=== PATIENT | female | born 2000 | race Caucasian/White ===

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

== ENCOUNTER 2018-01-01 12:34 | Emergency (ER) | payer OTHER ==
[2018-01-01 12:43] VITALS: BP 121/84
--- NOTE | 2018-01-01 12:49 | UC ---
HPI Wound/Suture Re-check - HPI Summary HPI Summary: 17 y/o female presents to the urgent care for wound re-check s/p laceration repair of RT knee on 12/24/2017. Pt reports she still taking Keflex PO which she will finish tomorrow. She states wound is healing well. She has been wearing the knee immobilize. However she feels she can removed it since she denies knee pain and can move Rt knee w/o any problem. She starts she would like to return to work tomorrow just for 4hrs. Pt works in a restaurant. Pt denies pain, numbness or tingling over the Rt lower extremity, calf pain, fever , signs of infection, abdominal pain, N/V/D. - History Of Current Complaint Stated Complaint: STITICHES REMOVAL Time Seen by Provider: 01/01/18 12:38 Hx Obtained From: Patient Hx Last Menstrual Period: 11/10/17 Onset/Duration: Sudden Onset, Lasting Days - 7 days, Resolved - wound healing well Severity: Moderate Pain Intensity: 0 Pain Scale Used: 0-10 Numeric Surgery Date: 12/24/17 - laceration repair - Allergies/Home Medications Allergies/Adverse Reactions: Allergies Allergy/AdvReac Type Severity Reaction Status Date / Time No Known Allergies Allergy Verified 01/01/18 12:43 PMH/Surg Hx/FS Hx/Imm Hx Previously Healthy: Yes Respiratory History: Asthma - Surgical History Surgical History: None - Family History Known Family History: Positive: Hypertension, Diabetes - Social History Occupation: Employed Full-time Lives: With Family Alcohol Use: None Substance Use Type: None Smoking Status (MU): Current Some Day Smoker Type: Cigarettes Amount Used/How Often: 4 cig day Household Exposure Type: Cigarettes - Immunization History Vaccination Up to Date: Yes Review of Systems Constitutional: Negative Skin: Other - laceration repair of RT knee healing well Eyes: Negative ENT: Negative Respiratory: Negative Cardiovascular: Negative Gastrointestinal: Negative Genitourinary: Negative Motor: Negative Neurovascular: Negative Musculoskeletal: Negative Neurological: Negative Psychological: Negative Is Patient Immunocompromised?: No All Other Systems Reviewed And Are Negative: Yes Physical Exam - Summary Physical Exam Summary: Vital Signs Reviewed: Yes General: well developed, well nourished female adolescent sitting in the examining table w/o any apparent distress Eye Exam: Normal Eyes: Positive: Conjunctiva Clear - PERRLA, EOMI, fundi grossly normal ENT: Positive: Normal ENT inspection, Hearing grossly normal, Pharynx normal, TMs normal Neck: Positive: Supple, Nontender, No Lymphadenopathy Respiratory: Positive: Chest non-tender, Lungs clear, Normal breath sounds, No respiratory distress Cardiovascular: Positive: RRR, No Murmur, Pulses Normal, Brisk Capillary Refill Abdomen Description: Positive: Nontender, No Organomegaly, Soft. Negative: CVA Tenderness (R), CVA Tenderness (L) Bowel Sounds: Positive: Present Musculoskeletal: Positive: Strength Intact, ROM Intact, No Edema Neurological: Positive: Alert, Muscle Tone Normal Psychological Exam: Normal Skin: Positive:RT knee below patella w/ irregular curvilinear superficial laceration about 5.0cm in size w/ [address], healing well ,with crusting and moderate granulation over, non tender to palpation, FROM of Rt knee. sensation intact, capillary refill brisk, and pulses WNL. Triage Information Reviewed: Yes Course/Dx - Course Course Of Treatment: 17 y/o female presents to the urgent care for wound re- check s/p laceration repair of RT knee on 12/24/2017. Pt reports she still taking Keflex PO which she will finish tomorrow. She states wound is healing well. She has been wearing the knee immobilize. However she feels she can removed it since she denies knee pain and can move Rt knee w/o any problem. She starts she would like to return to work tomorrow just for 4hrs. Pt works in a restaurant. Pt denies pain, numbness or tingling over the Rt lower extremity, calf pain, fever, signs of infection, abdominal pain, N/V/D. Hx obtained. Pt w/ RT knee below patella w/ irregular curvilinear superficial laceration about 5.0cm in size w/ [address], healing well ,with crusting and moderate granulation over, non tender to palpation, FROM of Rt knee on examiantion. Wound cleaned w/ iodine swabs and Bacitracin oint applied over wound and wound cover w/ sterile gauze. Sutures are not ready for removal. Pt advised to return in 5-7 days for suture removal. Advised to continue applying Bacitracin oint over wound and keep it dry and cleaned. Pt advised to continue using the knee immobilzer for a couple of days more. Pt advised she can return to work just for few hours. But should avoid standing for long periods of time or heavy lifting. D/c instructions explained. Pt understood and agreed w/ plan of care. - Differential Dx - Laceration/Wound Differential Diagnoses: Cellulitis, Healing Wound, Joint Infection, Suture Removal Provider Diagnoses: 1- wound check s/p laceration of RT knee Discharge - Sign-Out/Discharge Documenting (check all that apply): Patient Departure - D/c home All imaging exams completed and their final reports reviewed: No Studies - Discharge Plan Condition: Stable Disposition: HOME Patient Education Materials: Care For Your Stitches (ED) Forms: *Work Release Referrals: Felice GELLER,Renetta [Primary Care Provider] - 1 Week Additional Instructions: 1-Please continue taking Keflex PO as directed c to avoid resistance. Your stitches are not ready for removal yet you should return in 5-7 days for stitch removal 2- Keep wound clean and dry and apply the Mupurocin topical cream as directed. Avoid excessive movement w/ your knee. Avoid standing for long periods of time 3-Take Ibuprofen or Tylenol PO q6-8hrs prn for pain or swelling. 5- If you develop fever or redness around your finger despite the antibiotic please return to the Urgent care or f/u w/ PCP. - Billing Disposition and Condition Condition: STABLE Disposition: Home
== END 2018-01-01 13:15 | disposition home or self-care (01) ==
LOC: UCEAST 12:34
DX: S81.011D Laceration without foreign body, right knee, subsequent encounter (principal); X58.XXXD Exposure to other specified factors, subsequent encounter; Z72.0 Tobacco use
CPT/HCPCS: 99211; G0463

== ENCOUNTER 2018-01-08 13:23 | Emergency (ER) | payer OTHER ==
--- NOTE | 2018-01-08 13:45 | UC ---
Laceration HPI - HPI Summary HPI Summary: 17 yo female presents for suture removal. She had sutures placed 15 days ago to her right knee and has been in a knee immbolizer until 3 days ago when she decided on her own to take it off and walk around and return to her usual daily activities. She has been doing well. No fevers, bleeding, drainage, warmth, or pain at the site. Today she also complains of a productive cough over the last 3-4 days. She thinks it is bronchitis. Has not taken anything OTC for this. No SOB, chest pain. She is still smoking daily. - History Of Current Complaint Stated Complaint: SUTURE REMOVAL Time Seen by Provider: 01/08/18 13:45 Hx Obtained From: Patient Hx Last Menstrual Period: 11/10/17 Laceration Location: Knee - Allergies/Home Medications Allergies/Adverse Reactions: Allergies Allergy/AdvReac Type Severity Reaction Status Date / Time No Known Allergies Allergy Verified 01/08/18 13:51 PMH/Surg Hx/FS Hx/Imm Hx Respiratory History: Asthma - Surgical History Surgical History: None - Family History Known Family History: Positive: Hypertension, Diabetes - Social History Occupation: Employed Full-time Lives: With Family Alcohol Use: None Substance Use Type: None Smoking Status (MU): Current Some Day Smoker Type: Cigarettes Amount Used/How Often: 4 cig day Household Exposure Type: Cigarettes - Immunization History Vaccination Up to Date: Yes Review of Systems Constitutional: Negative Skin: Other - Laceration with sutures in place right knee Eyes: Negative ENT: Negative Respiratory: Cough Cardiovascular: Negative Gastrointestinal: Negative Neurovascular: Negative Musculoskeletal: Negative Neurological: Negative Psychological: Negative All Other Systems Reviewed And Are Negative: Yes Physical Exam - Summary Physical Exam Summary: GENERAL: NAD. WDWN. No pain distress. SKIN: Right anterior knee: sutures in place. Well healed and approximated. Scant clear drainage. No erythema, edema, or warmth. HEENT: Head: AT/NC Eyes: Conjunctiva clear without inflammation or discharge. Ears: Hearing grossly normal. TMs intact, no bulging, erythema, or edema. Nose: Nasal mucosa pink and moist. NTTP maxillary and frontal sinus. Throat: Posterior oropharynx without exudates, erythema, or tonsillar enlargement. Uvula midline. NECK: Supple. Nontender. No lymphadenopathy. CHEST: Moderate wheezing throughout. No r/r. No accessory muscle use. Breathing comfortably and in no distress. CV: RRR. Without m/r/g. Pulses intact. Cap refill <2seconds NEURO: Alert. PSYCH: Age appropriate behavior. Triage Information Reviewed: Yes Vital Signs: Vital Signs: Temp Pulse Resp BP Pulse Ox 97.5 F 76 20 140/79 95 01/08/18 13:46 01/08/18 13:46 01/08/18 13:46 01/08/18 13:46 01/08/18 13:46 Vital Signs Reviewed: Yes Laceration Course/Dx - Course/Dx Course Of Treatment: XR: IMPRESSION: NO ACTIVE CARDIOPULMONARY DISEASE. Duoneb : Significant improvement s/p. Less wheezing throughout. Sutures were removed and 3 steri-strips applied. Advised to continue to ice the knee and keep the area covered at all times until fully healed. Bronchitis - will rx prednisone and albuterol and have her f/u if her symptoms persist. - Differential Dx - Laceration/Wound Provider Diagnoses: Suture removal. Bronchitis Discharge - Sign-Out/Discharge Documenting (check all that apply): Patient Departure All imaging exams completed and their final reports reviewed: Yes - Discharge Plan Condition: Stable Disposition: HOME Prescriptions: Albuterol HFA INHALER* [Ventolin HFA Inhaler*] 1 puff INH Q6H PRN #1 mdi PRN Reason: Sob/Wheezing predniSONE TAB* [Deltasone 20 MG TAB*] 40 mg PO DAILY #10 tab Patient Education Materials: Acute Bronchitis (ED), Stitches Removal (ED) Forms: *Work Release Referrals: Renetta Viveros MD [Primary Care Provider] - Additional Instructions: If you develop a fever, shortness of breath, chest pain, new or worsening symptoms - please call your PCP or go to the ED. Your blood pressure was mildly elevated at todays visit. Please see your primary provider within 4 weeks for recheck and re-evaluation. 1) Keep your wound clean and bandaged at all times - Billing Disposition and Condition Condition: STABLE Disposition: Home
[2018-01-08 13:51] VITALS: BP 140/79
[2018-01-08] MEDS ORDERED: Albuterol/Ipratropium NEB.SOL* Albuterol 2.5 MG/Ipratropium 0.5 MG 3 ML INH ONE (13:58)
--- NOTE | 2018-01-08 14:17 | RAD ---
HISTORY: cough COMPARISONS: October 20, 2010 VIEWS: 4: Frontal dual-energy and lateral views of the chest. FINDINGS: CARDIOMEDIASTINAL SILHOUETTE: The cardiomediastinal silhouette is normal. ROBINA: The robina are normal. PLEURA: The costophrenic angles are sharp. No pleural abnormalities are noted. LUNG PARENCHYMA: The lungs are clear. ABDOMEN: The upper abdomen is clear. There is no subphrenic gas. BONES AND SOFT TISSUES: No bone or soft tissue abnormalities are noted. OTHER: None. IMPRESSION: NO ACTIVE CARDIOPULMONARY DISEASE.
== END 2018-01-08 14:35 | disposition home or self-care (01) ==
LOC: UCEAST 13:23
DX: S81.011D Laceration without foreign body, right knee, subsequent encounter (principal); J40 Bronchitis, not specified as acute or chronic; J45.909 Unspecified asthma, uncomplicated; F17.210 Nicotine dependence, cigarettes, uncomplicated; X58.XXXD Exposure to other specified factors, subsequent encounter
CPT/HCPCS: 71046; 99212; A9270-GY; G0463

== ENCOUNTER 2019-06-03 16:53 | Emergency (ER) | payer OTHER ==
[2019-06-03 17:11] VITALS: BP 128/78
[2019-06-03 18:12] LABS: Influenza A Molecular POSITIVE (Negative)
--- NOTE | 2019-06-03 19:02 | UC ---
FLU HPI - HPI Summary HPI Summary: 18-year-old female presents with 4 day history of general malaise, fatigue, headache, body aches, nasal congestion, sore throat, and cough. States that the onset of symptoms she had a few episodes of loose stool. She continues to have some mild nausea. Denies ear pain, dysphagia, chest pain, shortness of breath, abdominal pain, or vomiting. - History of Current Complaint Chief Complaint: UCRespiratory Stated Complaint: FEVER, SORE THROAT, COUGH Time Seen by Provider: 06/03/19 18:45 Hx Obtained From: Patient Hx Last Menstrual Period: 04/14/19 Pain Intensity: 7 - Allergy/Home Medications Allergies/Adverse Reactions: Allergies Allergy/AdvReac Type Severity Reaction Status Date / Time No Known Allergies Allergy Verified 06/03/19 17:11 Home Medications: Home Medications NK [No Home Medications Reported] 06/03/19 [History Confirmed 06/03/19] PMH/Surg Hx/FS Hx/Imm Hx Previously Healthy: Yes - Denies significant PMH - Surgical History Surgical History: None - Family History Known Family History: Positive: Hypertension, Diabetes - Social History Occupation: Employed Full-time Lives: Alone Alcohol Use: None Substance Use Type: None Smoking Status (MU): Current Some Day Smoker Type: Cigarettes Amount Used/How Often: 4 cig day Household Exposure Type: Cigarettes - Immunization History Most Recent Tetanus Shot: UTD Vaccination Up to Date: Yes Review of Systems All Other Systems Reviewed And Are Negative: Yes Constitutional: Positive: Fever, Chills, Fatigue Skin: Negative: Rash Eyes: Negative: Drainage, Eye Redness ENT: Positive: Sore Throat, Nasal Discharge, Sinus Congestion. Negative: Ear Ache, Sinus Pain/Tenderness Respiratory: Positive: Cough. Negative: Shortness Of Breath Cardiovascular: Negative: Palpitations, Chest Pain Gastrointestinal: Positive: Diarrhea, Nausea. Negative: Abdominal Pain, Vomiting Genitourinary: Negative: Dysuria, Hematuria, Frequency, Urgency Musculoskeletal: Positive: Myalgia Neurological/Mental Status: Positive: Headache Is Patient Immunocompromised?: No Physical Exam - Summary Physical Exam Summary: GENERAL APPEARANCE: Well developed, well nourished, alert and cooperative, and appears to be in no acute distress. EYES: Conjunctiva clear. No drainage. EARS: External auditory canals and tympanic membranes clear, hearing grossly intact. NOSE: Moderate nasal congestion with clear nasal discharge. THROAT: Pharyngeal erythema. No tonsilar inflammation, swelling, exudate, or lesions. Uvula midline. NECK: Neck supple, non-tender without lymphadenopathy. CARDIAC: Normal S1 and S2. No S3, S4 or murmurs. Rhythm is regular. There is no peripheral edema, cyanosis or pallor. Extremities are warm and well perfused. Capillary refill is less than 2 seconds. Peripheral pulses intact. LUNGS: Clear to auscultation without rales, rhonchi, wheezing or diminished breath sounds. Nonproductive cough. ABDOMEN: Positive bowel sounds. Soft, nondistended, nontender. No guarding or rebound. No masses or hepatosplenomegally. MUSKULOSKELETAL: ROM intact to all extremities. No joint erythema or tenderness. Normal muscular development. Normal gait. SKIN: Skin normal color, texture and turgor with no lesions or eruptions. Triage Information Reviewed: Yes Vital Signs: Initial Vital Signs Temp 98.3 F 06/03/19 17:05 Pulse 96 06/03/19 17:05 Resp 16 06/03/19 17:05 BP 128/78 06/03/19 17:05 Pulse Ox 100 06/03/19 17:05 Vital Signs Reviewed: Yes Flu Course/Dx - Course Course Of Treatment: 18-year-old female presents with 4 day history of general malaise, fatigue, headache, body aches, nasal congestion, sore throat, and cough. States that the onset of symptoms she had a few episodes of loose stool. She continues to have some mild nausea. Denies ear pain, dysphagia, chest pain, shortness of breath, abdominal pain, or vomiting. Afebrile. Vital signs stable. Patient had moderate nasal congestion, clear nasal discharge, normal TMs, pharyngeal erythema without tonsillar swelling or exudate, no cervical lymphadenopathy, clear bilateral breath sounds, dry nonproductive cough, and otherwise unremarkable exam. Rapid flu test was positive for influenza A. Patient is not a candidate for treatment with Tamiflu therefore recommending symptomatic treatment at this time including Tessalon Perles one capsule every 8 hours as needed for cough. She is to return here or follow up with primary care in 5-7 days if symptoms persist. Anticipatory guidance and warning symptoms were reviewed with the patient. Verbalizes understanding and agrees with plan of care. - Differential Dx/Diagnosis Differential Diagnosis/HQI/PQRI: Bronchitis, Influenza, Pneumonia, Upper Respiratory Infection Provider Diagnosis: Influenza A Discharge ED - Sign-Out/Discharge Documenting (check all that apply): Patient Departure All imaging exams completed and their final reports reviewed: No Studies - Discharge Plan Condition: Stable Disposition: HOME Patient Education Materials: Influenza (ED) Forms: *Work Release Referrals: No Primary Care Phys,NOPCP [Primary Care Provider] - [facility] REFERRAL [Outside] Additional Instructions: Your flu test in the clinic today was positive for influenza A. Get plenty of rest. Drink plenty of fluids to avoid dehydration especially if you are running any fever. Take over the counter acetaminophen (Tylenol) or ibuprofen (Advil, Motrin) according to directions as needed for pain or fever. Use an over the counter decongestant such as Sudafed for the nasal congestion. Take Tessalon Perles 1 cap every 8 hours as needed for cough. Use salt water gargles several times a day if you have a sore throat. You may also use Chloraseptic spray or Cepacol lonzenges according to directions which contain a numbing medication and can provide some temporary relief from your sore throat. Return here of follow up primary care in 5-7 days if symptoms persist. I have given you the contact information for the [facility] physician referral service if you need assistance with establishing with a provider. Seek immediate medical attention in the emergency room if you have fever greater than 100.5 F despite taking acetaminophen or ibuprofen, have chest pain , difficulty breathing, are unable to swallow, or have any worsening of symptoms. - Billing Disposition and Condition Condition: STABLE Disposition: Home
== END 2019-06-03 19:29 | disposition home or self-care (01) ==
LOC: UCEAST 16:53
DX: J10.1 Influenza due to other identified influenza virus with other respiratory manifestations (principal); R19.7 Diarrhea, unspecified; R11.0 Nausea; F17.210 Nicotine dependence, cigarettes, uncomplicated
CPT/HCPCS: 87651; 99212; G0463